=== PATIENT | male | born 1960 | race Two or more races ===

== ENCOUNTER 2016-11-21 16:47 | Emergency (ER) | payer MEDICAID ==
[~2016-11-21] VITALS: Ht 165.1 cm; Wt 70.3 kg
[2016-11-21 17:00] VITALS: BP 149/78
--- NOTE | 2016-11-21 17:02 | Emergency Room Report ---
History of Present Illness General Chief Complaint: Multiple Trauma/Fall Source: Patient (Anabelle Chi) Source: Patient (SUSANNE CUEVA M.D.) Present Illness HPI 56-year-old male presents to ED complaining of pain and swelling to the right foot times one week. Patient states he picked some skin from his right toe and states it became significantly swollen since. States pain is a 5/10, throbbing , nonradiating. Patient notes low-grade fever. Patient Accu-Chek is 401. Patient states he is a diabetic but is not taking his medication. Patient is bruising and ecchymosis over both eyes. States he tripped and fell yesterday hitting his head on a table. Denies LOC. Denies any headache. Denies any photophobia. Denies any blurry vision. No other aggravating or relieving factors. Denies any other associated symptoms (SUSANNE CUEVA M.D.) Allergies: Coded Allergies: No Known Allergies (Unverified , 11/21/16) Patient History Past Medical History: DM Past Surgical History: none Pertinent Family History: none Social History: Denies: alcohol use, drug use, smoking Immunizations: UTD Reviewed Nursing Documentation: PMH: Agreed, PSxH: Agreed (SUSANNE CUEVA M.D.) Nursing Documentation-PMH Past Medical History: No History, Except For Hx Diabetes: Yes (Anabelle ChiADebbie) Review of Systems All Other Systems: negative except mentioned in HPI (SUSANNE CUEVA M.D.) Physical Exam Vital Signs Date Time Temp Pulse Resp B/P Pulse Ox O2 Delivery O2 Flow Rate FiO2 11/21/16 16:50 100.4 95 18 148/75 98 Room Air (Anabelle Chi.ADebbie) Sp02 EP Interpretation: reviewed, normal General Appearance: no apparent distress, alert, GCS 15, non-toxic Head: normocephalic, other - eccyhmoses/bruising around both eyes Eyes: bilateral eye EOMI, bilateral eye PERRL, bilateral eye normal inspection , bilateral eye visual acuity ENT: hearing grossly normal, normal pharynx, no angioedema, normal voice Neck: normal inspection Respiratory: chest non-tender, lungs clear, normal breath sounds, speaking full sentences Cardiovascular #1: regular rate, rhythm, no edema Gastrointestinal: normal bowel sounds, non tender, soft, non-distended, no guarding, no rebound Rectal: deferred Genitourinary: no CVA tenderness Musculoskeletal: swelling - R foot Neurologic: alert, oriented x3, responsive, motor strength/tone normal, sensory intact, speech normal Psychiatric: judgement/insight normal, memory normal, mood/affect normal, no suicidal/homicidal ideation Skin: other - blackened R big toe. mottled skin over R foot. marked swelling/ induration R foot Lymphatic: normal inspection (SUSANNE CUEVA M.D.) Medical Decision Making Diagnostic Impression: Primary Impression: Gangrene due to arterial insufficiency ER Course Patient signed out to me. He is being admitted for gangrene of his lower extremity. Arterial ultrasound showed good flow. No stenosis. No thrombosis. Patient is stable for transfer. (ROBERT LEVINE M.D.) EKG Diagnostic Results Rate: normal Rhythm: NSR ST Segments: no acute changes ASA given to the pt in ED: No (SUSANNE CUEVA M.D.) Rhythm Strip Diag. Results EP Interpretation: yes Rhythm: NSR, no PVC's, no ectopy (SUSANNE CUEVA M.D.) CT/MRI/US Diagnostic Results CT/MRI/US Diagnostic Results : Imaging Test Ordered: Arterial ultrasound of the lower extremities. 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 Negative. Good flow. (ROBERT LEVINE M.D.) Last Vital Signs Date Time Temp Pulse Resp B/P Pulse Ox O2 Delivery O2 Flow Rate FiO2 11/21/16 16:50 100.4 95 18 148/75 98 Room Air (Anabelle Chi) Status: improved (SUSANNE CUEVA M.D.) Disposition: XFER SHT-TRM HOSP Condition: Serious Anabelle Chi Nov 21, 2016 17:02 SUSANNE CUEVA M.D. Nov 21, 2016 17:54 ROBERT LEVINE M.D. Nov 21, 2016 19:49
[2016-11-21] MEDS ORDERED: Vancomycin 1 GM in NS 275 ML IV ONE (17:15)
[2016-11-21] MEDS ORDERED: Vancomycin 1gm inj IVPB ONE (17:36)
[2016-11-21 17:41] LABS: APPEARANCE,URINE CLEAR; BASOPHILS % (AUTO) 1.1 % (0.0-2.0); EOSINOPHILS % (AUTO) 0.3 % (0.0-3.0); KETONES,URINE NEGATIVE (NEGATIVE); LEUKOCYTE ESTERASE ,URINE NEGATIVE (NEGATIVE); LYMPHOCYTES % (AUTO) 13.2 % (20.0-45.0); MEAN CORPUSCULAR HEMOGLOBIN 34.3 PG (27.0-31.0); MEAN CORPUSCULAR HGB CONC 36.9 G/DL (32.0-36.0); MEAN CORPUSCULAR VOLUME 93 FL (80-99); MEAN PLATELET VOLUME 6.6 FL (6.5-10.1); MONOCYTES % (AUTO) 6.8 % (1.0-10.0); NEUTROPHILS % (AUTO) 78.6 % (45.0-75.0); NITRITE,URINE NEGATIVE (NEGATIVE); PH,URINE 6.5 (4.5-8.0); PLATELET COUNT 358 K/UL (150-450); PROTEIN,URINE 2+ (NEGATIVE); RED BLOOD COUNT 3.36 M/UL (4.70-6.10); RED CELL DISTRIBUTION WIDTH 9.9 % (11.6-14.8); UROBILINOGEN,URINE 4 MG/DL (0.0-1.0); WHITE BLOOD COUNT 16.4 K/UL (4.8-10.8)
[2016-11-21 17:51] LABS: RBC,URINE 0-2 /HPF (0 - 0); WBC,URINE 0-2 /HPF (0 - 0)
[2016-11-21 17:54] LABS: PROTHROMBIN TIME 10.4 SEC (9.30-11.50)
[2016-11-21 18:03] LABS: TROPONIN I < 0.30 ng/mL (<=0.30)
[2016-11-21 18:06] LABS: ALANINE AMINOTRANSFERASE 24 U/L (3-41); ALBUMIN/GLOBULIN RATIO 0.7 (1.0-2.7); ANION GAP 13 (5-15); ASPARTATE AMINO TRANSFERASE 27 U/L (5-40); CALCIUM 8.8 mg/dL (8.6-10.2); CARBON DIOXIDE 28 mEQ/L (20-30); CHLORIDE 89 mEQ/L (98-107); CREATININE 0.9 mg/dL (0.7-1.2); GLOMERULAR FILTRATION RATE > 60 mL/min (>60); HEMOLYSIS 30; MAGNESIUM 1.9 mg/dL (1.7-2.5); POTASSIUM 3.6 mEQ/L (3.4-4.9); SODIUM 130 mEQ/L (135-145); TOTAL PROTEIN 7.4 g/dL (6.6-8.7)
[2016-11-21 18:16] LABS: CKMB < 1.5 ng/mL (< 6.7)
[2016-11-21] MEDS ORDERED: NKM (18:58)
[2016-11-21 20:15] VITALS: BP 137/76
[2016-11-21 21:44] VITALS: BP 150/71
[2016-11-21 21:56] VITALS: BP 150/71
--- NOTE | 2016-11-22 09:11 | Diagnostic Imaging Report ---
CT Brain without Intravenous Contrast INDICATION: Pain status post fall. COMPARISON: None TECHNIQUE: Serial axial images were obtained from the the skull base through the vertex without intravenous contrast. Coronal reformats were obtained. Dose Estimate: Total DLP 1330 mGycm CTDIvol 70 mGy FINDINGS: The reina white matter differentiation appears normal. There is no evidence of acute intracranial hemorrhage or territorial infarct. The cortical sulci, ventricles and extra-axial CSF spaces are normal in size for patient's age. There is no space occupying lesion, mass effect or midline shift. The visualized paranasal sinuses and mastoid air cells are clear. The osseous structures are unremarkable. Left periorbital and left facial soft tissue swelling noted. IMPRESSION: 1. No acute intracranial abnormality. Left periorbital and left facial soft tissue swelling/hematoma. Please refer to the separately reported facial bone CT.
--- NOTE | 2016-11-22 09:18 | Diagnostic Imaging Report ---
Clinical history: Chest pain Technique: Portable AP chest radiograph was obtained. Comparison: None Findings: Lung volumes are low with probable vascular crowding. There is no pneumonia or pulmonary edema. There is no pleural effusion or pneumothorax. The cardiac and mediastinal silhouettes are normal in appearance. The bony thorax is unremarkable. Impression: Low lung volumes. No evidence of acute disease..
--- NOTE | 2016-11-23 18:14 | Cardiology Report ---
APPROVED REPORT EKG Measurement Heart [id number] ME [id number] Normal sinus rhythm Normal ECG
== END 2016-11-21 21:56 | disposition short-term general hospital (02) ==
LOC: EDSEX 16:47 → EMR 17:09
DX: I70.261 Atherosclerosis of native arteries of extremities with gangrene, right leg (principal); E11.9 Type 2 diabetes mellitus without complications
CPT/HCPCS: 36415; 70450; 70486; 71010; 80053; 81003; 82009; 82550; 82553; 83605; 83735; 84484; 85025; 85610; 85730; 87040; 87081; 93005; 93926; 96361; 96374; 99285; J3370; J7050

== ENCOUNTER 2018-05-13 17:04 | Emergency (ER) | payer MEDICAID, OTHER ==
[~2018-05-13] VITALS: Ht 172.7 cm; Wt 83.9 kg
[~2018-05-13 17:04] MED LIST: NKM
--- NOTE | 2018-05-13 17:25 | NUR ---
ED Nurse Note: A/OX4. AMBULATED IN TO ER DUE TO RUE NUMBNESS YESTERDAY, NO PAIN AT THIS TIME. PER PT, HE RAN OUT OF INSULIN ABOUT TEN DAYS AGO. BS OF 346 AT THIS TIME, NOTIFIED DR. ORO. EVARISTO N/V/D.
[2018-05-13 17:30] VITALS: BP 179/88
[2018-05-13] MEDS ORDERED: ASPIRIN81 MG ORAL (17:33)
[2018-05-13] MEDS ORDERED: LANTUS SOL100 UNIT/1 SUBQ ×2 (17:33→19:56)
[2018-05-13] MEDS ORDERED: ATORVASTATIN CA20 MG ORAL (17:33)
[2018-05-13] MEDS ORDERED: VITAMIN D400 INTLU ORAL (17:33)
[2018-05-13] MEDS ORDERED: HUMALOG KW200 UNIT/1 SQ (17:34)
[2018-05-13] MEDS ORDERED: LISINOPRIL5 MG ORAL (17:34)
[2018-05-13] MEDS ORDERED: MAGNESIUM OXID400 M2 PO (17:34)
[2018-05-13] MEDS ORDERED: Sodium Chloride 500ML 550 ML IV SCH (18:45)
[2018-05-13 18:50] LABS: APPEARANCE,URINE CLEAR; BILIRUBIN, URINE NEGATIVE (NEGATIVE); COLOR,URINE PALE YELLOW; GLUCOSE, URINE (UA) 4+ (NEGATIVE); KETONES,URINE NEGATIVE (NEGATIVE); LEUKOCYTE ESTERASE ,URINE NEGATIVE (NEGATIVE); NITRITE,URINE NEGATIVE (NEGATIVE); PH,URINE 7 (4.5-8.0); PROTEIN,URINE NEGATIVE (NEGATIVE); UROBILINOGEN,URINE NORMAL MG/DL (0.0-1.0)
[2018-05-13 18:52] LABS: BASOPHILS % (AUTO) 1.5 % (0.0-2.0); EOSINOPHILS % (AUTO) 1.8 % (0.0-3.0); HEMATOCRIT 40.8 % (42.0-52.0); HEMOGLOBIN 14.4 G/DL (14.2-18.0); LYMPHOCYTES % (AUTO) 29.4 % (20.0-45.0); MEAN CORPUSCULAR VOLUME 90 FL (80-99); MONOCYTES % (AUTO) 4.4 % (1.0-10.0); NEUTROPHILS % (AUTO) 62.9 % (45.0-75.0); PLATELET COUNT 283 K/UL (150-450); RED BLOOD COUNT 4.51 M/UL (4.70-6.10); RED CELL DISTRIBUTION WIDTH 9.9 % (11.6-14.8); WHITE BLOOD COUNT 9.9 K/UL (4.8-10.8)
--- NOTE | 2018-05-13 18:54 | Emergency Room Report ---
History of Present Illness General Chief Complaint: General Complaint Source: Patient Present Illness HPI Patient presented with numbness on the right side intermittently for the last several weeks. She states that he has not taken his diabetic medication, insulin and Lantus for almost 10 days. He is trying to establish his primary care physician. He denies any other associated symptoms. Denies polydipsia or polyuria. Denies any chest pain or shortness of breath. No other associated symptoms. The patient denies any weakness. Any slurred speech. Allergies: Coded Allergies: No Known Allergies (Unverified , 11/21/16) Nursing Documentation-[facility] Past Medical History: No History, Except For Hx Diabetes: Yes Review of Systems All Other Systems: negative except mentioned in HPI Physical Exam Vital Signs Date Time Temp Pulse Resp B/P (MAP) Pulse Ox O2 Delivery O2 Flow Rate FiO2 05/13/18 17:21 98.2 87 16 177/84 96 Room Air General Appearance: well appearing, no apparent distress Head: normocephalic, atraumatic ENT: hearing grossly normal, normal voice Respiratory: no respiratory distress, speaking full sentences Gastrointestinal: normal inspection, normal bowel sounds, non tender, soft Musculoskeletal: no calf tenderness Skin: no rash Medical Decision Making Diagnostic Impression: Primary Impression: Hyperglycemia ER Course Patient has had multiple bedside evaluation. Patient alert and nontoxic appearing. No other associated symptoms. Particularly very concerned about acute diabetic ketoacidosis. The patient was given long-acting insulin for tonight. And he will be discharged home with a refill of his Lantus. However, he is quested to follow-up with his primary care physician as an outpatient to return sooner is any change in symptoms or worsening symptoms. No signs of infection. Laboratory Tests Test 05/13/18 18:00 White Blood Count 9.9 K/UL (4.8-10.8) Red Blood Count 4.51 M/UL (4.70-6.10) L Hemoglobin 14.4 G/DL (14.2-18.0) Hematocrit 40.8 % (42.0-52.0) L Mean Corpuscular Volume 90 FL (80-99) Mean Corpuscular Hemoglobin 31.8 PG (27.0-31.0) H Mean Corpuscular Hemoglobin Concent 35.2 G/DL (32.0-36.0) Red Cell Distribution Width 9.9 % (11.6-14.8) L Platelet Count 283 K/UL (150-450) Mean Platelet Volume 7.4 FL (6.5-10.1) Neutrophils (%) (Auto) 62.9 % (45.0-75.0) Lymphocytes (%) (Auto) 29.4 % (20.0-45.0) Monocytes (%) (Auto) 4.4 % (1.0-10.0) Eosinophils (%) (Auto) 1.8 % (0.0-3.0) Basophils (%) (Auto) 1.5 % (0.0-2.0) Urine Color Pale yellow Urine Appearance Clear Urine pH 7 (4.5-8.0) Urine Specific [place] 1.005 (1.005-1.035) Urine Protein Negative (NEGATIVE) Urine Glucose (UA) 4+ (NEGATIVE) H Urine Ketones Negative (NEGATIVE) Urine Blood Negative (NEGATIVE) Urine Nitrite Negative (NEGATIVE) Urine Bilirubin Negative (NEGATIVE) Urine Urobilinogen Normal MG/DL (0.0-1.0) Urine Leukocyte Esterase Negative (NEGATIVE) Urine RBC 0-2 /HPF (0 - 0) H Urine WBC 0 /HPF (0 - 0) Urine Squamous Epithelial Cells None /LPF (NONE/OCC) Urine Bacteria None /HPF (NONE) Sodium Level 134 MMOL/L (136-145) L Potassium Level 4.1 MMOL/L (3.5-5.1) Chloride Level 97 MMOL/L (98-107) L Carbon Dioxide Level 29 MMOL/L (21-32) Anion Gap 8 mmol/L (5-15) Blood Urea Nitrogen 15 mg/dL (7-18) Creatinine 1.0 MG/DL (0.55-1.30) Estimate Glomerular Filtration Rate > 60 mL/min (>60) Glucose Level 332 MG/DL (74-106) H Calcium Level 9.7 MG/DL (8.5-10.1) Total Bilirubin 0.3 MG/DL (0.2-1.0) Aspartate Amino Transferase (AST) 19 U/L (15-37) Alanine Aminotransferase (ALT) 38 U/L (12-78) Alkaline Phosphatase 158 U/L (46-116) H Troponin I 0.000 ng/mL (0.000-0.056) Total Protein 8.1 G/DL (6.4-8.2) Albumin 3.7 G/DL (3.4-5.0) Globulin 4.4 g/dL Albumin/Globulin Ratio 0.8 (1.0-2.7) L EKG Diagnostic Results EKG Time: 18:54 Rate: normal Rhythm: NSR ST Segments: no acute changes ASA given to the pt in ED: No Last Vital Signs Date Time Temp Pulse Resp B/P (MAP) Pulse Ox O2 Delivery O2 Flow Rate FiO2 05/13/18 17:30 98.2 85 20 179/88 100 Room Air Disposition: HOME, SELF-CARE Condition: Stable Scripts Insulin Glargine (LANTUS) 100 Unit/1 Ml Insuln.pen 20 UNITS SUBQ BEDTIME for 14 Days, #1 EA 0 Refills Prov: LATONYA ORO 05/13/18 Patient Instructions: Diabetes Mellitus and Food LATONYA ORO May 13, 2018 18:54
[2018-05-13 19:02] LABS: ANION GAP 8 mmol/L (5-15); BLOOD UREA NITROGEN 15 mg/dL (7-18); CALCIUM 9.7 MG/DL (8.5-10.1); CARBON DIOXIDE 29 MMOL/L (21-32); CHLORIDE 97 MMOL/L (98-107); POTASSIUM 4.1 MMOL/L (3.5-5.1); SODIUM 134 MMOL/L (136-145)
[2018-05-13 19:07] LABS: ALANINE AMINOTRANSFERASE 38 U/L (12-78); ALBUMIN 3.7 G/DL (3.4-5.0); ALBUMIN/GLOBULIN RATIO 0.8 (1.0-2.7); ALKALINE PHOSPHATASE 158 U/L (46-116); ASPARTATE AMINO TRANSFERASE 19 U/L (15-37); BILIRUBIN,TOTAL 0.3 MG/DL (0.2-1.0)
--- NOTE | 2018-05-13 19:21 | NUR ---
ED Nurse Note: Report given to JAE Chase. Patient resting in bed. No facial grimacing or guarding noted.
--- NOTE | 2018-05-13 19:33 | NUR ---
HAND-OFF: Report given to JAE Menjivar. No s/s of distress.
[2018-05-13] MEDS ORDERED: Levemir Flexpen SUBQ ONE (21:00)
[2018-05-13 21:03] VITALS: BP 150/85
--- NOTE | 2018-05-13 21:04 | NUR ---
ED Nurse Note: Patient cleared for discharge by IKER. patient AOx4, VSS, ambulatory with steady gait, no s/s of acute distress noted at this time. patient provided with discharge instructions, medication prescriptions, and teaching on how to use insulin pens. Patient verbalized understanding. patient ID band and IV access removed. Patient took all personal belongings with him. Patient instructed to follow up with PCP in 3x days. Patient has friend at bedside to take him home.
[2018-05-13 21:05] VITALS: BP 150/85
--- NOTE | 2018-05-14 13:26 | Cardiology Report ---
APPROVED REPORT EKG Measurement Heart [id number] AL [id number] Normal sinus rhythm Left axis deviation Minimal voltage criteria for LVH, may be normal variant Abnormal ECG
== END 2018-05-13 21:06 | disposition home or self-care (01) ==
LOC: EMR 19:13
DX: E11.65 Type 2 diabetes mellitus with hyperglycemia (principal); Z79.4 Long term (current) use of insulin
CPT/HCPCS: 36415; 80053; 81001; 82962; 84484; 85025; 93005; 96360; 96361; 99284; S5561

== ENCOUNTER 2018-09-26 17:27 | Emergency (ER) | payer OTHER ==
[~2018-09-26] VITALS: Ht 167.6 cm; Wt 81.6 kg
[~2018-09-26 17:27] MED LIST changes: +ASPIRIN81 MG ORAL; +ATORVASTATIN CA20 MG ORAL; +HUMALOG KW200 UNIT/1 SQ; +LANTUS SOL100 UNIT/1 SUBQ; +LISINOPRIL5 MG ORAL; +MAGNESIUM OXID400 M2 PO; +VITAMIN D400 INTLU ORAL
[2018-09-26 17:52] VITALS: BP 154/81
--- NOTE | 2018-09-26 17:52 | NUR ---
ED Nurse Note: AMBULATED IN TO ED DUE TO MED REFILL FOR INSULIN. BS 196 IN TRIAGE. A/OX4. NO S/S OF ACUTE DISTRESS. LAST DOSE OF INSULIN WAS YESTERDAY
--- NOTE | 2018-09-26 17:59 | NUR ---
ED Nurse Note: PER PT, HE TAKES BASAGLAR INSULIN
--- NOTE | 2018-09-26 18:24 | Emergency Room Report ---
History of Present Illness General Chief Complaint: Medication Refill Source: Patient Present Illness HPI 57-year-old male with history of type 2 diabetes currently on Basaglar letter requesting a refill of his insulin. Patient reports that his blood sugar has been above 200 for the past few days and it was 196 in the emergency room today. According to patient's patient has not seen his primary care physician in the past 3 months and has been getting refills of his insulin from the pharmacy. Patient does not recall the latest results of his hemoglobin A1c , denies blurry vision, neuropathy, chest pain, shortness of breath, palpitation , abdominal pain, nausea vomiting, headache and dizziness. Allergies: Coded Allergies: No Known Allergies (Unverified , 09/26/18) Patient History Past Medical History: see triage record Past Surgical History: unable to obtain Pertinent Family History: none Reviewed Nursing Documentation: PMH: Agreed; PSxH: Agreed Nursing Documentation-PM Past Medical History: No History, Except For Hx Diabetes: Yes Review of Systems All Other Systems: negative except mentioned in HPI Physical Exam Vital Signs Date Time Temp Pulse Resp B/P (MAP) Pulse Ox O2 Delivery O2 Flow Rate FiO2 09/26/18 17:52 98.1 84 16 154/81 (105) 96 Room Air Sp02 EP Interpretation: reviewed, normal General Appearance: normal inspection, well appearing, no apparent distress Head: normocephalic, atraumatic Eyes: bilateral eye normal inspection, bilateral eye PERRL ENT: normal ENT inspection, hearing grossly normal, normal pharynx Neck: normal inspection, full range of motion Respiratory: normal inspection, chest non-tender, lungs clear, no wheezing Cardiovascular #1: normal inspection, regular rate, rhythm, no murmur, normal capillary refill Gastrointestinal: normal inspection, soft Genitourinary: no CVA tenderness Musculoskeletal: normal inspection, back normal Neurologic: normal inspection, alert, oriented x3, 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 Xavier Diagnostic Impression: Primary Impression: Encounter for medication refill Additional Impression: Diabetes ER Course 57-year-old male with history of type 2 diabetes currently on Basaglar letter requesting a refill of his insulin. Patient reports that his blood sugar has been above 200 for the past few days and it was 196 in the emergency room today. According to patient's patient has not seen his primary care physician in the past 3 months and has been getting refills of his insulin from the pharmacy. Patient does not recall the latest results of his hemoglobin A1c , denies blurry vision, neuropathy, chest pain, shortness of breath, palpitation , abdominal pain, nausea vomiting, headache and dizziness. Ddx considered but are not limited to encounter for medication refill, diabetes type 2 uncontrolled, diabetes type 2 controlled Vital signs: are WNL, pt. is afebrile H&PE are most consistent with encounter for medication refill for diabetes type 2 uncontrolled ORDERS: Same blood glucose, Basaglar ED INTERVENTIONS: basaglar. DISCHARGE: At this time pt. is stable for d/c to home. Will provide printed patient care instructions, and any necessary prescriptions. Care plan and follow up instructions have been discussed with the patient prior to discharge. Follow-up with your primary care provider for hemoglobin A1c check and further prescription for insulin one time refill of insulin for 2 weeks supply was done in the emergency room today Last Vital Signs Date Time Temp Pulse Resp B/P (MAP) Pulse Ox O2 Delivery O2 Flow Rate FiO2 09/26/18 17:52 98.1 84 16 154/81 (105) 96 Room Air Disposition: HOME, SELF-CARE Condition: Stable Scripts Insulin Glargine (Lantus) 100 Unit/1 Ml Vial 20 UNITS SUBQ BEDTIME, #10 EA 0 Refills Prov: Geoffrey Plascencia 09/26/18 Patient Instructions: Diabetes Mellitus and Food, Medicine Refill at the Emergency Department Additional Instructions: Follow-up with your primary care provider for blood work and hemoglobin A1c check insulin prescription refill can be given for 10 days only as you have not been compliant with follow-up with the primary care physician and checking her sugar Geoffrey Plascencia Sep 26, 2018 18:24
[2018-09-26] MEDS ORDERED: LANTUS5 UNITS SUBQ (18:37)
[2018-09-26 18:45] VITALS: BP 137/76
--- NOTE | 2018-09-26 18:45 | NUR ---
ER DISCHARGE NOTE: Patient is cleared to be discharged per ERMD, pt is aox4, on room air, with stable vital signs. pt was given dc and prescription instructions, pt was able to verbalize understanding, pt id band removed without complications. pt is able to ambulate with steady gait. pt took all belongings.
== END 2018-09-26 19:15 | disposition home or self-care (01) ==
LOC: EMR 18:49
DX: E11.9 Type 2 diabetes mellitus without complications (principal); Z76.0 Encounter for issue of repeat prescription; Z79.4 Long term (current) use of insulin
CPT/HCPCS: 99282